=== PATIENT | male | born 1950 | race Caucasian/White ===

== ENCOUNTER → 2017-01-19 | Outpatient (CLI) | payer MEDICARE ==
[~2017-01-19] MED LIST: FLOMAX0.4 M1 PO; PHENERGAN25 M1 PO; ROBITUSSIN A-C S5 ML PO
--- NOTE | ~2017-01-19 | CR7 ---
[facility] A Service of [facility] RADIOLOGY TEXT RESULTS PATIENT: PETRONA HICKMAN LOCATION: [facility] : 52 UNIT #: [id number] AGE: [address]: Carlos Begum MD SEX: M ORDER DR: [id number] [facility] [address] [place], [place] [address] [id number] O MR#: [id number] Acc #: [id number] NAME: PETRONA HICKMAN : 1950 SEX: M STUDY DATE/TIME: 01/19/2017 12:11 UNIT: [facility] ROOM: STUDY DESCRIPTION: CR Abdomen Single AP View Attending Physician: Carlos Begum M.D. Referring Physician: Carlos Begum M.D. Ordering Physician: Carlos Begum M.D. Primary Care Physician: Nguyễn Vazquez Jr., M.D. MEDICAL IMAGING REPORT This report is preliminary unless electronic signature is present EXAM Frontal abdomen, 01/19/2017. INDICATIONS 66-year-old male with a kidney stone. Left-sided abdominal pain. History of stones. Symptoms began today, lithotripsy on the left in the past. TECHNIQUE Frontal abdomen was performed. COMPARISON Correlation is made with prior study 01/21/2016. FINDINGS The gallbladder is surgically absent. Both renal shadows are obscured by air and fecal material. There is a tiny stone measuring 3 mm projecting over the lower pole left kidney. There is dextroscoliosis and degenerative change of the lumbar spine. There are calcifications in the pelvis that are essentially unchanged and appear to be vascular in nature as well. IMPRESSION 1. 3 mm stone on the left. 2. Probable vascular calcifications in the pelvis. 3. Dextroscoliosis and secondary degenerative change. Dictated by... Merlin Amor M.D. THIS IS AN ELECTRONICALLY VERIFIED REPORT Merlin Amor M.D. at 01/22/2017 9:09 AM ADAM/ellyn [facility] A Service of [facility] RADIOLOGY TEXT RESULTS PATIENT: PETRONA HICKMAN LOCATION: [facility] : 52 UNIT #: [id number] AGE: [address]: Carlos Begum MD SEX: M ORDER DR: TD: 01/19/2017 23:18 JOB #: [id number] MEDICAL IMAGING REPORT Page 1 of 1 COPY
== END | disposition home or self-care (01) ==
LOC: CRAD 11:46
DX: N20.0 Calculus of kidney (principal); M41.9 Scoliosis, unspecified; M47.896 Other spondylosis, lumbar region
CPT/HCPCS: 74000